=== PATIENT | female | born 1935 | race Caucasian/White ===

== ENCOUNTER → 2017-10-28 | Outpatient (CLI) | payer OTHER ==
[~2017-10-28] MED LIST: ACETAMINOPHEN325 M1 PO; ALBUTEROL NEB INH; APAP650 PO; AVELOX 400 MG400 MG PO; B COMPLEX1 EAC1 PO; BACTRIM DS TAB1 EACH; CARDIZEM CD180 MG PO; CEPACOL SORE T1 EAC2 MM; FISH OIL 1,001000 M2 PO; HYDROCHLOROTHIA50 MG PO; KLOR-CON 1010 MEQ PO; LEVOTHYROXINE 0.1 MG PO; LEVOXYL100 MCG PO; LOPERAMIDE 2 MG2 M1 PO; LOVASTAT20 PO; MUCINEX600 MG PO; MUCUS ER600 MG PO; OCCUVITE VITAMIN; ONDANSETRON HCL4 M2 PO; PREDNISONE 10 M10 M1 PO; PRILOSEC20 MG PO; PROBIOTIC1 EACH PO; SINGULAIR 10 MG10 M1 PO; URSO PO; URSODIOL250 MG PO
== END ==
LOC: CAT 11:24
DX: S22.070A Wedge compression fracture of T9-T10 vertebra, initial encounter for closed fracture (principal); J92.9 Pleural plaque without asbestos; J47.9 Bronchiectasis, uncomplicated; R91.8 Other nonspecific abnormal finding of lung field; R93.8 Abnormal findings on diagnostic imaging of other specified body structures; R05 Cough; J45.909 Unspecified asthma, uncomplicated; I10 Essential (primary) hypertension; E78.00 Pure hypercholesterolemia, unspecified; E03.9 Hypothyroidism, unspecified; X58.XXXA Exposure to other specified factors, initial encounter; Y93.89 Activity, other specified; Y92.89 Other specified places as the place of occurrence of the external cause; Y99.8 Other external cause status; F93.8 Other childhood emotional disorders

== ENCOUNTER → 2017-11-04 | Outpatient (CLI) | payer OTHER | LOC: PULREHAB 10:58 | DX: R05 Cough (principal); R93.8 Abnormal findings on diagnostic imaging of other specified body structures ==

== ENCOUNTER → 2018-01-28 | Outpatient (CLI) | payer OTHER | LOC: CAT 13:02 | DX: J47.9 Bronchiectasis, uncomplicated (principal); J90 Pleural effusion, not elsewhere classified; J98.4 Other disorders of lung; R91.8 Other nonspecific abnormal finding of lung field ==

== ENCOUNTER → 2018-05-26 | Outpatient (CLI) | payer OTHER | LOC: RAD 10:42 | DX: J47.9 Bronchiectasis, uncomplicated (principal); J90 Pleural effusion, not elsewhere classified; Z88.8 Allergy status to other drugs, medicaments and biological substances; Z88.2 Allergy status to sulfonamides ==

== ENCOUNTER → 2018-12-15 | Outpatient (CLI) | payer OTHER | LOC: RAD 13:04 | DX: R91.8 Other nonspecific abnormal finding of lung field (principal); J90 Pleural effusion, not elsewhere classified; J98.11 Atelectasis; Z88.2 Allergy status to sulfonamides; Z88.8 Allergy status to other drugs, medicaments and biological substances ==